=== PATIENT | male | born 1965 | race Caucasian/White ===

== ENCOUNTER 2020-07-28 13:22 | Day surgery (SDC) | payer BC ==
[~2020-07-28] VITALS: Ht 172.7 cm; Wt 77.0 kg
[~2020-07-28 13:22] MED LIST: AMLODIPINE-OLM1 EACH PO; ASPIR 8181 M1 PO; Crestor20 MG PO
--- NOTE | 2020-07-28 13:50 | NUR ---
07/28/20 1350 Nata Quigley 1 TRY RIGHT HAND BLEW VALVE 2 TRY RIGHT HAND MOVED AND NEEDLE CAME OUT
== END 2020-07-28 15:21 | disposition home or self-care (01) ==
LOC: ORSCSDS 13:22
PROVIDERS: Internal Medicine Gastroenterology
PROC: 0DBH8ZX Excision of Cecum, Via Natural or Artificial Opening Endoscopic, Diagnostic (ICD-10-PCS; principal; 2020-07-28 14:45)
DX: Z12.11 Encounter for screening for malignant neoplasm of colon (principal); D12.0 Benign neoplasm of cecum; I10 Essential (primary) hypertension; K64.8 Other hemorrhoids; Z79.82 Long term (current) use of aspirin; Z79.899 Other long term (current) drug therapy
CPT/HCPCS: 88305; J2250; J2704; J7120